=== PATIENT | male | born 1990 | race Caucasian/White ===

== ENCOUNTER 2019-07-17 02:55 | Observation (INO) | payer OTHER ==
[~2019-07-17] VITALS: Ht 185.4 cm; Wt 106.8 kg
--- NOTE | ~2019-07-17 | EC ---
PATIENT:QI KUHN DATE OF SERVICE: 07/17/19 SEX: M MEDICAL RECORD: [id number] DATE OF : [birth year] LOCATION:[facility] AGE OF PATIENT: 28 ADMISSION DATE: 07/17/19 REFERRING PHYSICIAN: INTERPRETING PHYSICIAN: JOSEE PRESTON MD ECHOCARDIOGRAM REPORT ECHO CHARGES 4 ECHO COMPLETE Date: 07/17/19 CLINICAL DIAGNOSIS: BRADYCARDIA ECHOCARDIOGRAPHIC MEASUREMENTS (adult normal given) AC root (d.<3.7cm) 3.2 cm LV Septum d (<1.2 cm> 1.0 cm Valve Excursion 1.9 cm LV Septum (systole) 1.2 cm Left Atria (s.<4.0cm> 3.9 cm LVPW d(<1.2cm) 1.0 cm RV (d.<2.3cm) 3.2 cm LVPW (sytole) 1.4 cm LV diastole(<5.6CM) 5.5 cm MV E-F(>70mm/sec) cm LV systole 4.2 cm LVOT Diameter 2.3 cm MV exc.(>10mm) cm Est.ejection fraction (50-75%) % DOPPLER: LVIT cm/sec A 49 cm/sec E 80 cm/sec LA cm/sec RVSP 21.8 mmHg LVOT 103 cm/sec AOP1/2T m/s Asc. Ao 107 cm/sec RVOT 67 cm/sec RA cm/sec PA 94 cm/sec AV Gradient Peak 4.6 mmHg AV Mean 2.4 mmHg AV Area 4.4 cm MV Gradient Peak 7.0 mmHg MV Mean 1.5 mmHg MV Area cm COMMENTS: Product Development Scientist: Gayle [facility] Veterinarian Poultry: 1 Dr. Preston TAPE# PACS Pericardial Effusion N DATE OF SERVICE: 07/17/2019 ECHOCARDIOGRAM FINDINGS: 1. Left ventricular chamber size is within normal limits. Left ventricular systolic function is normal. Overall ejection fraction estimated at 60%. 2. Left atrium is within normal limits. Right atrium and right ventricle chamber sizes are mildly dilated. 3. Valvular structures have normal structure and motion. ECHOCARDIOGRAM REPORT [id number] QI KUHN 4. Doppler interrogation reveals trace mitral regurgitation, trace tricuspid regurgitation, no other valvular insufficiency or stenosis. Pulmonary systolic pressure estimated at 22 mmHg. 5. No evidence of pericardial effusion or left ventricular thrombus. TRANSINT:[id number] Voice Confirmation ID: [id number] DOCUMENT ID: [id number] JOSEE PRESTON MD CC: [id number] DICTATION DATE: 07/19/19 1207 EMBROIDERY CUTTER: 07/19/19 1726 DIS IN 07/17/19 [facility] [address] [id number]
--- NOTE | ~2019-07-17 | CN ---
PATIENT NAME:QI KUHN MEDICAL RECORD: [id number] : 88 LOCATION:[facility] ADMIT DATE: 07/17/19 ACCOUNT: [id number] CONSULTING PHYSICIAN: JOSEE ONTIVEROS MD REFERRING PHYSICIAN: KRISTINE ESPINOZA MD DATE OF CONSULTATION: 07/17/2019 DIAGNOSES: 1. Sinus bradycardia. 2. Abdominal pain. HISTORY OF PRESENT ILLNESS: This is a gentleman who is transferred [facility], has had 3 years of abdominal pain. He is now undergoing a workup for cholecystitis. He is with heart rates in the 40s, basically asymptomatic with the bradycardia. He is not having any cardiac symptomatology. His EKG other than the bradycardia is normal. He is on no AV blocking medications. PHYSICAL EXAMINATION: CONSTITUTIONAL/GENERAL APPEARANCE: Well nourished, well developed, appears stated age. EYES: Lids and conjunctivae noninjected. No discharge. No pallor. ENT: Lips within normal limit. No cyanosis. No pallor. NECK: Carotid arteries, bilateral normal upstroke. No bruits. No thrills. No jugular venous pressure or distention. CERVICAL LYMPH NODES: Nontender. Nonenlarged. THYROID: Not enlarged. No nodules. CARDIOVASCULAR: Precordial exam, nondisplaced. No heaves or pericardial thrills. Rate and rhythm, regular. Heart sounds, normal S1, normal S2. No S3, no gallop, no rub. Systolic murmur, not heard. Diastolic murmur, not heard. RESPIRATORY: Respiratory effort, unlabored. Normal curvature. No thoracic deformity. No chest wall tenderness. Percussion, resonant. Auscultation, clear. No wheezes, no rales, no rhonchi. ABDOMEN: Soft, nondistended, nontender. No abdominal pain, no vomiting and normal appetite. MUSCULOSKELETAL: No joint tenderness, normal gait, normal tone. SKIN: Warm and dry. OVERALL IMPRESSION: Sinus bradycardia. At this time, we will get an echocardiogram to rule out cardiomyopathy. No other cardiac workup or treatment is necessary. TRANSINT:[id number] Voice Confirmation ID: [id number] DOCUMENT ID: [id number] JOSEE ONTIVEROS MD CC: [id number] DICTATION DATE: 07/17/19 0859 CENTER HOLE REAMER: 07/17/19 1204 ADM IN [place] [id number] [place] [address]
--- NOTE | 2019-07-17 03:32 | NUR ---
DR WIN NOTIFIED AND REVIEWED PT's BEHAVIOR AND ASSESSMENT RESULTS. PT IS A LOW RISK PER DR WIN. DR WIN STATED TO GIVE RESOURCES TO PT AT TIME OF DISCHARGE. NO FURTHER ORDERS AT THIS TIME, RESOURCES REVIEWED WITH PT AND HE VERBALIZED UNDERSTANDING.
[2019-07-17 04:00] VITALS: BP 103/62; BP 143/79
[2019-07-17 07:47] VITALS: BP 113/72
[2019-07-17 09:40] LABS: BASOPHILS 0.2 % (0-2); EOSINOPHILS 0.8 % (0-7); HEMATOCRIT 39.3 % (42.0-54.0); HEMOGLOBIN 13.2 g/dL (13.5-17.5); IMMATURE GRANULOCYTES 0.5 % (0-5); LYMPHOCYTES 25.3 % (15-50); MCH 29.1 pg (26.0-34.0); MCHC 33.6 g/dL (31.0-37.0); MCV 86.6 fL (80.0-100.0); MEAN PLATELET VOLUME 9.9 fL (7.4-10.4); MONOCYTES 7.1 % (2-11); NEUTROPHILS 66.1 % (40-80); PLATELET COUNT 222 10x3/uL (130-400); RBC 4.54 10x6/uL (4.20-6.10); RDW 12.8 % (11.5-14.5); WBC 9.5 10x3/uL (4.8-10.8)
[2019-07-17 10:00] LABS: ALBUMIN 3.4 g/dL (3.4-5.0); ALKALINE PHOSPHATASE 62 U/L (30-120); ALT (SGPT) 43 U/L (10-68); BILIRUBIN - TOTAL 0.26 mg/dL (0.2-1.3); CALC OSMOLALITY 276 mosm/kg (275-300); CALCIUM 8.1 mg/dL (8.5-10.1); CARBON DIOXIDE 27.5 mmol/L (21.0-32.0); CHLORIDE - SERUM 105 mmol/L (98-107); CREATININE - SERUM 0.9 mg/dL (0.6-1.3); GLUCOSE 94 mg/dL (74-106); LIPASE 97 U/L (73-393); PROTEIN - SERUM 6.3 g/dL (6.4-8.2); SODIUM 139 mmol/L (136-145); UREA NITROGEN 10 mg/dL (7-18); eGFR NON AFRICAN AMERICAN > 90 mL/min (90-120)
[2019-07-17 10:13] VITALS: BMI 31.0
--- NOTE | 2019-07-17 11:21 | NUR ---
pt took chg shower.
[2019-07-17 12:11] VITALS: Ht 185.4 cm; Wt 106.8 kg
[2019-07-17 12:20] VITALS: BP 125/76
--- NOTE | 2019-07-17 14:40 | NUR ---
SPOKE WITH NIDA RODRIGUEZ SHE STATES PT IS TO BE NPO UNTIL SEEN BY SURGERY.
[2019-07-17 17:15] VITALS: BP 134/78
--- NOTE | 2019-07-17 18:51 | NUR ---
DISCHARGE INSTUCTIONS GIVEN TO PT. PT HAS NO FURTHER QUESTIONS. CHART COPY SIGNED.
--- NOTE | 2019-07-17 19:04 | NUR ---
PT TAKEN DOWN VIA WC BY [employer]SCHOOL AND LEFT WITH PSOUSE AND MOM IN PERSONAL CAR.
== END 2019-07-17 19:05 | disposition home or self-care (01) ==
LOC: D.ER 02:55 → OBSVTIME 05:23 → D.MS 05:23 → D.SDCHOLD 11:29 → D.MS 19:05
PROVIDERS: ADMIT Internal Medicine Nephrology; ATTEND Internal Medicine Nephrology
DX: K80.50 Calculus of bile duct without cholangitis or cholecystitis without obstruction (principal); K82.8 Other specified diseases of gallbladder; R00.1 Bradycardia, unspecified; R11.2 Nausea with vomiting, unspecified